=== PATIENT | female | born 1970 | race Caucasian/White ===

== ENCOUNTER 2019-10-26 10:44 | Outpatient (CLI) | payer OTHER | END 2019-10-26 23:59 | disposition home or self-care (01) | LOC: CFH 10:44 → MERGE 10:44 → CFH 23:59 | PROVIDERS: ATTEND Nurse Practitioner Family | DX: Z12.31 Encounter for screening mammogram for malignant neoplasm of breast (principal) | CPT/HCPCS: 77067 ==

== ENCOUNTER → 2020-11-28 | Outpatient (CLI) | payer OTHER ==
[~2020-11-28] MED LIST: ASCO-213 PO; BLAC20TA PO; CYCL10TA2 PO; ECHI80CA PO; GARL10002 PO; LORA-446 PO; MAGN100T PO; PROP10TA16 PO; S-AD400T3 PO; [UNRECOGNIZED DRUG - CODE] PO; [UNRECOGNIZED DRUG - OTHER] PO
== END | disposition home or self-care (01) ==
LOC: STAR 13:37
PROVIDERS: ATTEND Obstetrics & Gynecology Female Pelvic Medicine and Reconstructive Surgery
DX: Z20.822 Contact with and (suspected) exposure to COVID-19 (principal); N83.202 Unspecified ovarian cyst, left side; R10.32 Left lower quadrant pain
CPT/HCPCS: U0003; U0005

== ENCOUNTER 2020-12-03 05:36 | Day surgery (SDC) | payer OTHER ==
[~2020-12-03] VITALS: Ht 172.7 cm; Wt 84.4 kg
[2020-12-03 06:25] VITALS: BP 125/89
[2020-12-03] MEDS ORDERED: LACTATED RINGERS 1,000 ML IV SCH ×2 (06:30→08:30)
[2020-12-03] MEDS ORDERED: CHLORHEXIDINE 15 ML UDC PO ONE (06:30)
[2020-12-03] MEDS ORDERED: EPINEPHRINE 1 MG/ML, 1ML ONE (07:11)
[2020-12-03] MEDS ORDERED: BUPIVACAINE/PF 0.5% ONE (07:11)
[2020-12-03] MEDS ORDERED: FENTANYL PF 100 MCG/2ML ONE ×2 (07:16→08:21)
[2020-12-03] MEDS ORDERED: MIDAZOLAM 1 MG/ML, 2ML ONE (07:16)
[2020-12-03] MEDS ORDERED: LIDOCAINE-MPF 2% ,5ML ONE (07:18)
[2020-12-03] MEDS ORDERED: DEXAMETHASONE 4 MG/ML, 1ML ONE ×2 (07:18)
[2020-12-03] MEDS ORDERED: PROPOFOL 10 MG/ML, 20ML ONE (07:18)
[2020-12-03] MEDS ORDERED: ONDANSETRON 2MG/ML, 2ML ONE (07:18)
[2020-12-03] MEDS ORDERED: ROCURONIUM 10MG/ML,5ML ONE (07:28)
[2020-12-03] MEDS ORDERED: HYDROmorphone 1 MG/ML, 1ML INJ IVPush PRN (07:30)
[2020-12-03] MEDS ORDERED: OXYcodone 5 MG/5 ML ORAL.SOL UDC PO PRN (07:30)
[2020-12-03] MEDS ORDERED: DIAZEPAM 5 MG/ML, 2ML IVPush PRN (07:30)
[2020-12-03] MEDS ORDERED: PROMETHAZINE 25 MG/ML, 1ML IVPush PRN (07:30)
[2020-12-03] MEDS ORDERED: ACETAMINOPHEN 325 MG TABLET PO PRN (07:30)
[2020-12-03] MEDS ORDERED: MEPERIDINE/PF 25MG/0.5ML IVPush PRN (07:30)
[2020-12-03] MEDS ORDERED: ONDANSETRON 2MG/ML, 2ML IVPush PRN ×2 (07:30→08:30)
[2020-12-03] MEDS ORDERED: CEFAZOLIN 1,000 MG ONE ×2 (07:50)
[2020-12-03] MEDS: FENTANYL PF 100 MCG/2ML IV PRN ×2 (08:22→08:34)
[2020-12-03] MEDS ORDERED: KETOROLAC 30 MG/1 ML ONE (08:28)
[2020-12-03] MEDS ORDERED: KETOROLAC 30 MG/1 ML IVPush ONE (08:30)
[2020-12-03] MEDS ORDERED: HYDROcodone/APAP 5/325 TABLET PO PRN (08:30)
[2020-12-03] MEDS ORDERED: IBUPROFEN 600 MG TABLET PO PRN (08:30)
[2020-12-03] MEDS ORDERED: PROMETHAZINE 25 MG SUPP PR ONE (08:30)
[2020-12-03] MEDS ORDERED: ACETAMINOPHEN 650 MG/20.3 ML UDC ONE (08:36)
[2020-12-03] MEDS ORDERED: OXYcodone 5 MG/5 ML ORAL.SOL UDC ONE (08:36)
== END 2020-12-03 10:15 | disposition home or self-care (01) ==
LOC: OUT 05:36
PROVIDERS: ATTEND Obstetrics & Gynecology Female Pelvic Medicine and Reconstructive Surgery
DX: N83.02 Follicular cyst of left ovary (principal); N83.8 Other noninflammatory disorders of ovary, fallopian tube and broad ligament; N73.6 Female pelvic peritoneal adhesions (postinfective); L90.0 Lichen sclerosus et atrophicus; F41.9 Anxiety disorder, unspecified; Z79.899 Other long term (current) drug therapy; Z88.2 Allergy status to sulfonamides; Z88.5 Allergy status to narcotic agent; Z91.040 Latex allergy status; Z90.710 Acquired absence of both cervix and uterus; Z90.721 Acquired absence of ovaries, unilateral; Z98.51 Tubal ligation status; Z80.3 Family history of malignant neoplasm of breast; Z80.7 Family history of other malignant neoplasms of lymphoid, hematopoietic and related tissues
CPT/HCPCS: 58661; 88305; J0690; J1100; J1885; J2250; J2405; J2704; J3010; J7120; J0171